=== PATIENT | female | born 1940 | race Hispanic/Latino ===

== ENCOUNTER 2017-09-23 19:20 | Emergency (ER) | payer OTHER ==
[2017-09-23 19:51] LABS: BASOPHILS % (AUTO) 0.9 % (0.0-5.0); EOSINOPHILS % (AUTO) 1.7 % (0.0-8.0); HEMATOCRIT 30.5 % (36-48); LYMPHOCYTES % (AUTO) 17.2 % (21.0-51.0); MEAN CORPUSCULAR HEMOGLOBIN 29.1 pg (27.0-33.0); MEAN CORPUSCULAR VOLUME 88.2 fL (79-99); MONOCYTES % (AUTO) 7.2 % (3.0-13.0); PLATELET COUNT (AUTO) 215 K/uL (130-400); RED BLOOD CELL COUNT(AUTO) 3.45 MIL/uL (4.00-5.50); RED CELL DISTRIBUTION WIDTH 15.3 % (11.0-15.5); WHITE BLOOD COUNT (AUTO) 11.4 K/uL (4.8-10.8)
[2017-09-23 20:01] LABS: PARTIAL THROMBOPLASTIN TIME 35.2 SEC (26.3-35.5); PROTHROMBIN TIME 10.5 SEC (9.6-11.6)
[2017-09-23 20:12] LABS: CREATININE 1.5 mg/dL (0.5-1.5)
[2017-09-23 20:27] LABS: ALBUMIN 3.4 g/dL (3.5-5.0); BILIRUBIN,TOTAL 0.3 mg/dL (0.2-1.0); CREATINE KINASE MB 1.6 ng/mL (0.5-3.6); TOTAL PROTEIN, SERUM 7.2 g/dL (6.0-8.3)
[2017-09-23 20:34] LABS: APPEARANCE,URINE Clear (CLEAR); BILIRUBIN,URINE Negative (NEGATIVE); COLOR,URINE Yellow (YELLOW); GLUCOSE, URINE (UA) Negative (NEGATIVE); KETONES,URINE Negative (NEGATIVE); LEUKOCYTE ESTERASE ,URINE Negative (NEGATIVE); NITRATE,URINE Negative (NEGATIVE); OCCULT BLOOD,URINE Trace (NEGATIVE); PH,URINE 6.5 (5.0-8.0); PROTEIN,URINE POS 1+ (NEGATIVE)
[2017-09-23 20:43] LABS: BACTERIA,URINE Rare /HPF (None Seen); RBC,URINE None Seen /HPF (0-1); SQUAMOUS EPITHELIAL CELL,UR 0-2 /HPF (0-2); WBC,URINE 0-1 /HPF (0-1)
[2017-09-23] MEDS ORDERED: CEPHALEXIN 500 MG CAPSULE ONE (23:56)
== END 2017-09-24 00:18 | disposition home or self-care (01) ==
LOC: EDH 19:20
DX: S00.83XA Contusion of other part of head, initial encounter (principal); R55 Syncope and collapse; I10 Essential (primary) hypertension; N39.0 Urinary tract infection, site not specified; M79.642 Pain in left hand; Z98.890 Other specified postprocedural states; W01.0XXA Fall on same level from slipping, tripping and stumbling without subsequent striking against object, initial encounter; Y93.01 Activity, walking, marching and hiking; Y92.89 Other specified places as the place of occurrence of the external cause; Y99.8 Other external cause status
CPT/HCPCS: 36415; 70450; 71045; 72125; 80053; 81001; 82550; 82553; 84484; 85025; 85610; 85730; 87088; 93005; 94761; 96360

== ENCOUNTER 2018-04-24 09:01 | Emergency (ER) | payer OTHER ==
[2018-04-24] MEDS ORDERED: ASPIRIN 325 MG TABLET ONE (09:30)
[2018-04-24 09:50] LABS: BASOPHILS % (AUTO) 1.1 % (0.0-5.0); HEMATOCRIT 34.9 % (36-48); LYMPHOCYTES % (AUTO) 18.3 % (21.0-51.0); MEAN CORPUSCULAR HEMOGLOBIN 30.3 pg (27.0-33.0); MEAN CORPUSCULAR HGB CONC 32.5 g/dL (32.0-36.0); MONOCYTES % (AUTO) 10.9 % (3.0-13.0); NEUTROPHILS % (AUTO) 66.7 % (40.0-77.0); NUCLEATED RED BLOOD CELLS 0.1 % (0.0-0.19); PLATELET COUNT (AUTO) 239 K/uL (130-400); RED BLOOD CELL COUNT(AUTO) 3.75 MIL/uL (4.00-5.50); WHITE BLOOD COUNT (AUTO) 9.3 K/uL (4.8-10.8)
[2018-04-24 09:57] LABS: CREATININE 1.4 mg/dL (0.5-1.5); POTASSIUM 4.5 mmol/L (3.5-5.1)
[2018-04-24 10:02] LABS: INR 0.96 (0.85-1.15); PARTIAL THROMBOPLASTIN TIME 33.5 SEC (26.3-35.5); PROTHROMBIN TIME 10.1 SEC (9.6-11.6)
[2018-04-24 10:03] LABS: ALBUMIN 3.4 g/dL (3.5-5.0); BILIRUBIN,TOTAL 0.3 mg/dL (0.2-1.0); TOTAL PROTEIN, SERUM 6.9 g/dL (6.0-8.3)
[2018-04-24 10:15] LABS: B-TYPE NATRIURETIC PEPTIDE 138 pg/mL (0-100)
[2018-04-24] MEDS ORDERED: ALBUTEROL SULFATE 0.083% 2.5 MG/3 ML INH IH ONE (10:45)
[2018-04-24] MEDS ORDERED: SODIUM CHLORIDE 0.9% 500ML 500 ML IV ONE (12:41)
== END 2018-04-24 13:02 | disposition home or self-care (01) ==
LOC: EDH 09:01
DX: E86.9 Volume depletion, unspecified (principal); B37.2 Candidiasis of skin and nail; R07.89 Other chest pain; I10 Essential (primary) hypertension; Z98.890 Other specified postprocedural states; Z90.710 Acquired absence of both cervix and uterus; Z87.891 Personal history of nicotine dependence
CPT/HCPCS: 36415; 71045; 80053; 82550; 83605; 83690; 83880; 84484; 85025; 85610; 85730; 87804 ×2; 93005 ×2; 94640; 96360; 99284; J7040

== ENCOUNTER 2019-02-12 11:55 | Observation (INO) | payer OTHER ==
[~2019-02-12] VITALS: Ht 154.9 cm; Wt 76.7 kg
[2019-02-12] MEDS ORDERED: CEFAZOLIN SODIUM 1 GM VIAL ONE (12:26)
[2019-02-12] MEDS ORDERED: SODIUM CHLORIDE 0.9% 50 ML IV ONE (12:27)
[2019-02-12] MEDS ORDERED: MORPHINE SULFATE 4 MG/1ML SYG ONE (13:24)
[2019-02-12] MEDS ORDERED: ONDANSETRON HCL 4 MG/2 ML VIAL ONE (13:24)
[2019-02-12] MEDS ORDERED: SODIUM CHLORIDE 0.9% 250 ML IV ONE ×2 (13:26→14:31)
[2019-02-12 13:28] LABS: BASOPHILS % (AUTO) 0.7 % (0.0-5.0); EOSINOPHILS % (AUTO) 4.1 % (0.0-8.0); HEMATOCRIT 33.4 % (36-48); LYMPHOCYTES % (AUTO) 14.4 % (21.0-51.0); MEAN CORPUSCULAR HEMOGLOBIN 30.5 pg (27.0-33.0); MEAN CORPUSCULAR HGB CONC 33.3 g/dL (32.0-36.0); MEAN CORPUSCULAR VOLUME 91.6 fL (79-99); MONOCYTES % (AUTO) 6.1 % (3.0-13.0); NEUTROPHILS % (AUTO) 74.7 % (40.0-77.0); PLATELET COUNT (AUTO) 275 K/uL (130-400); RED BLOOD CELL COUNT(AUTO) 3.65 MIL/uL (4.00-5.50); RED CELL DISTRIBUTION WIDTH 13.9 % (11.0-15.5)
[2019-02-12 13:39] LABS: CREATININE 1.7 mg/dL (0.5-1.5); POTASSIUM 4.6 mmol/L (3.5-5.1)
[2019-02-12 13:40] LABS: INR 0.99 (0.85-1.15); PARTIAL THROMBOPLASTIN TIME 31.7 SEC (26.3-35.5); PROTHROMBIN TIME 10.4 SEC (9.6-11.6)
[2019-02-12 13:44] LABS: ALBUMIN 3.4 g/dL (3.5-5.0); BILIRUBIN,TOTAL 0.3 mg/dL (0.2-1.0); TOTAL PROTEIN, SERUM 7.7 g/dL (6.0-8.3)
[2019-02-12] MEDS ORDERED: TETANUS/DIPHTHERIA TOXOID [ADULT] 0.5 ML VIAL IM ONE (14:37)
[2019-02-12] MEDS: LACTATED RINGERS 1000ML 1,000 ML IV SCH (16:07)
[2019-02-12] MEDS ORDERED: DIPHENHYDRAMINE HCL 25 MG CAPSULE PO PRN (16:15)
[2019-02-12] MEDS ORDERED: NITROGLYCERIN 0.4 MG SL TAB SL PRN (16:15)
[2019-02-12] MEDS ORDERED: LACTULOSE 20 GM/30 ML UDCUP PO PRN (16:15)
[2019-02-12] MEDS ORDERED: HYDROCODONE/ACETAMINOPHEN 5/325 MG TAB PO PRN (16:15)
[2019-02-12] MEDS ORDERED: ONDANSETRON HCL 4 MG/2 ML VIAL IV PRN (16:15)
[2019-02-12] MEDS ORDERED: ACETAMINOPHEN 325 MG TAB PO PRN (16:15)
[2019-02-12 16:54] VITALS: BP 183/51
[2019-02-12] MEDS ORDERED: ACETAMINOPHEN-CODEINE 300/30MG TAB PO PRN ×2 (17:00)
[2019-02-12] MEDS ORDERED: MORPHINE SULFATE 2 MG/ML 1ML SYG IVP PRN (17:00)
[2019-02-12] MEDS ORDERED: MORPHINE SULFATE 2 MG/ML 1ML SYG ONE (17:12)
[2019-02-12] MEDS: CEFAZOLIN SODIUM 1 GM VIAL IVP SCH (17:15)
[2019-02-12] MEDS ORDERED: FURO20TA4 PO (18:50)
[2019-02-12] MEDS ORDERED: METO-391 PO (18:50)
[2019-02-12 19:22] VITALS: BP 167/63
[2019-02-12 23:30] VITALS: BP 134/57
[2019-02-13] MEDS: CEFAZOLIN SODIUM 1 GM VIAL IVP SCH ×2 (00:53→08:59)
[2019-02-13] MEDS: LACTATED RINGERS 1000ML 1,000 ML IV SCH (00:54)
[2019-02-13 03:00] VITALS: BP 164/70
[2019-02-13] MEDS ORDERED: CEFAZOLIN SODIUM 1 GM VIAL IVP SCH (05:00)
[2019-02-13 05:57] LABS: BASOPHILS % (AUTO) 0.8 % (0.0-5.0); HEMATOCRIT 28.4 % (36-48); LYMPHOCYTES % (AUTO) 20.2 % (21.0-51.0); MEAN CORPUSCULAR HEMOGLOBIN 31.1 pg (27.0-33.0); MEAN CORPUSCULAR HGB CONC 33.8 g/dL (32.0-36.0); MONOCYTES % (AUTO) 9.7 % (3.0-13.0); NEUTROPHILS % (AUTO) 65.3 % (40.0-77.0); PLATELET COUNT (AUTO) 226 K/uL (130-400); RED BLOOD CELL COUNT(AUTO) 3.09 MIL/uL (4.00-5.50); RED CELL DISTRIBUTION WIDTH 13.6 % (11.0-15.5); WHITE BLOOD COUNT (AUTO) 8.2 K/uL (4.8-10.8)
[2019-02-13 07:48] VITALS: BP 155/55
[2019-02-13 07:55] LABS: CREATININE 1.6 mg/dL (0.5-1.5); POTASSIUM 4.4 mmol/L (3.5-5.1)
[2019-02-13] MEDS ORDERED: FAMOTIDINE 20MG TAB 20 MG TAB PO SCH (09:00)
[2019-02-13] MEDS ORDERED: ***HM***Metoprolol Succinate 50 MG PO SCH (09:00)
--- NOTE | 2019-02-13 11:19 | NUR ---
08:50 PATIENT IS SCHEDULE FOR PROCEDURE ANYTIME TODAY.WILL ATTEMPT TO INITIATE PHYSICAL THERAPY EVALUATION LATER THIS PM.SPOKE TO PATIENT'S SON KALYANI AND ROLANDORN WAS NOTIFIED WELL. Addendum: 02/13/19 at 1122 by NORMA LAW, PT PT Amended: Links added.
--- NOTE | 2019-02-13 11:30 | NUR ---
INITIAL- INFO PER SON MET W PT AND SON AT [facility]-- PT W LARGE BANDAGE COVERING HER FACE/FOREHAED.ANNETTA STATES HIS MOTHER LIVES WITH HIMSELF AND HIS SON- PROVIDER PER COUSIN. STATES PT USES NO DME BECAUSE SHE CANNOT USES A CANE OR A WALKER OR SIT PROPERLY IN A WHEELCHAIR SHE IS TOO STIFF. STATES THEY HELP HER TO SAMBULATE AND THAT HIS HOME IS SAFE AND ACCESSIBLE FOR HER AND FALLING DOWN WAS JUST AN ACCIDENT AND NOT RELATED TO HER DEBLITY OR DIZZINESS. MABLEDorothy FEELS SAFE TO HAVE PT RETURN AND WOULD DECLINE ANY PLACEMENT FOR HIS MOM, Addendum: 02/14/19 at 1750 by YENNY GRAY RN CM Amended: Links added.
[2019-02-13 11:33] LABS: APPEARANCE,URINE Clear (CLEAR); BILIRUBIN,URINE Negative (NEGATIVE); COLOR,URINE Yellow (YELLOW); GLUCOSE, URINE (UA) Negative (NEGATIVE); KETONES,URINE Negative (NEGATIVE); LEUKOCYTE ESTERASE ,URINE Trace (NEGATIVE); NITRATE,URINE Negative (NEGATIVE); OCCULT BLOOD,URINE Negative (NEGATIVE); PROTEIN,URINE Trace mg/dL (NEGATIVE); UROBILINOGEN,URINE 0.2 mg/dL (0.2-1.0)
[2019-02-13 11:47] VITALS: BP 144/45
[2019-02-13 12:18] LABS: BACTERIA,URINE Few /HPF (None Seen); RBC,URINE 0-1 /HPF (0-1); WBC,URINE 0-1 /HPF (0-1)
--- NOTE | 2019-02-13 15:39 | NUR ---
[facility] CONSULT PATIENT ASSESSED REQUESTED: PATIENT PRESENTS WITH LACERATION TO FOREHEAD, SUTURES INTACT; ORDERS FOR WOUND CARE ALREADY IN CHART; NO [facility] RECOMMNEDATIONS REQUIRED AT THIS TIME. Addendum: 02/13/19 at 1545 by STEVE PIZANO LVN Amended: Links added.
--- NOTE | 2019-02-13 16:10 | NUR ---
DISCHARGE DISCHARGE TEACHING DONE WITH PATIENT SON USING TEACHBACK METHOD, VERBALIZED UNDERSTANDING. IV REMOVED, CATH TIP INTACT. DRESSING TO FOREHEAD CHANGED PER DR. VASQUEZ. SUTURES ARE DRY AND INTACT, NO OPENING OF LACERATION NOTED. NEW MEDICATION ADMINISTRATION TEACHING DONE WITH SON AND PATIENT, VERBALIZED UNDERSTANDING. PT AND SON AWARE OF PENDING APPOINTMENT WITH DR. VASQUEZ AND PCP. EMS TO BE SET UP FOR PATIENT, WILL MONITOR UNTIL TRANSFERRED OUT VIA STRETCHER.
--- NOTE | 2019-02-13 16:45 | NUR ---
EMS REQUESTED BY SON SPOKE TO SON RE TRANSPORT- HE STATES WOULD BE GRATEFUL TO HAVE EMS COME TO ASSIST WITH TRANSFORT 2/2 HER EXTREME CONTRACTURE- ALL FORMS FILLED OUT INC ORDER FOR SAFE DISCHARGE PER EMS RECD FROM AND FAXED TO [facility].
--- NOTE | 2019-02-13 18:15 | NUR ---
REFUSED EMS PER NEXT OF KIN, REFUSING EMS STATING " I WILL HELP MY MOTHER GET IN CAR AND TRANSFER HER IN PRIVATE VEHICLE. " EMS CALLED, DECLINED SERVICES. PATIENT WHEELED DOWNSTAIRS AND TRANSFER OUT VIA PRIVATE VEHICLE.
== END 2019-02-13 18:54 | disposition home or self-care (01) ==
LOC: EDH 11:55 → EDHIP 14:24 → 4AH 16:23
PROVIDERS: ADMIT Internal Medicine Pulmonary Disease; ATTEND Internal Medicine Pulmonary Disease
DX: S01.81XA Laceration without foreign body of other part of head, initial encounter (principal); I11.0 Hypertensive heart disease with heart failure; I50.9 Heart failure, unspecified; W19.XXXA Unspecified fall, initial encounter; Y93.89 Activity, other specified; Y92.009 Unspecified place in unspecified non-institutional (private) residence as the place of occurrence of the external cause
CPT/HCPCS: 12016; 36415 ×2; 70450; 72125; 80048; 80053; 81001; 85025 ×2; 85610; 85730; 90714; 96374; 96376; 97039; 97161; 99284; G0378 ×26; G8981; G8983; J0690 ×3; J2270; J2405; J7030 ×2; J7120

== ENCOUNTER 2019-02-23 10:16 | Emergency (ER) | payer OTHER ==
[~2019-02-23 10:16] MED LIST: FURO20TA4 PO; METO-391 PO
== END 2019-02-23 10:51 | disposition home or self-care (01) ==
LOC: EDH 10:16
DX: S01.81XD Laceration without foreign body of other part of head, subsequent encounter (principal); I10 Essential (primary) hypertension; X58.XXXD Exposure to other specified factors, subsequent encounter